=== PATIENT | male | born 1955 | race Hispanic/Latino ===

== ENCOUNTER 2017-08-04 07:11 | Inpatient (IN) | payer MEDICAID, SELFPAY ==
[2017-08-04] MEDS ORDERED: Nitroglycerin 2% Ointment 1 INCH/1 GM Packet ONE (08:13)
[2017-08-04 08:28] LABS: #Lymphocytes 0.8 thou/uL (1.20-3.40); #Monocytes 0.7 thou/uL (0.11-0.59); #Neutrophils 9.8 thou/uL (1.40-6.50); %Basophils 0.2 % (0.0-1.0); %Eosinophils 0.2 % (0.0-10.0); %Lymphocytes 6.8 % (21.0-51.0); %Monocytes 5.9 % (0.0-10.0); %Neutrophils 86.9 % (42.0-75.0); Hemoglobin 10.5 g/dL (14.0-18.0); Mean Corpuscular HGB CONC 33.2 g/dL (32.0-36.0); Mean Corpuscular Hemoglobin 32.2 pg (27.0-31.0); Mean Platelet Volume 8.1 fL (7.4-10.4); Platelet Count 218 thou/uL (130-400); RBC Distribution Width 12.4 % (11.5-14.5); Red Blood Cell (RBC) Count 3.26 mill/uL (4.70-6.10); White Blood Cell (WBC) Count 11.3 thou/uL (4.8-10.8)
[2017-08-04 08:40] LABS: ALT (SGPT) 50 U/L (8-55); AST (SGOT) 62 U/L (5-34); Albumin 3.4 g/dL (3.4-4.8); Alkaline Phosphatase 204 U/L (40-150); Anion Gap 18 mmol/L (10-20); Bilirubin, Total 1.1 mg/dL (0.2-1.2); CK (CPK) 121 U/L (30-200); Calc. Creatinine Clearance 0 mL/min (70-130); Carbon Dioxide 17 mmol/L (23-31); Chloride 107 mmol/L (98-107); Estimated GFR-MDRD 8; Globulin 3.7 g/dL (2.4-3.5); Glucose 283 mg/dL (80-115); Lipase 62 U/L (8-78); Potassium 5.9 mmol/L (3.5-5.1); Protein, Total 7.1 g/dL (5.8-8.1); Sodium 136 mmol/L (136-145)
[2017-08-04 08:45] LABS: CKMB 3.7 ng/mL (0-6.6); Troponin I 0.211 ng/mL (< 0.028)
[2017-08-04] MEDS ORDERED: Calcium Chloride 1 GM/10 ML Abboject SYRINGE ONE ×2 (08:50→08:52)
[2017-08-04] MEDS ORDERED: Furosemide 100 MG/10 ML VIAL ONE (08:50)
[2017-08-04] MEDS ORDERED: Sodium Bicarb 50 MEQ/50 ML Abboject 8.4% SYRINGE ONE (08:50)
[2017-08-04] MEDS ORDERED: Insulin Regular 300 UNITS/3 ML VIAL ONE (08:50)
[2017-08-04 08:51] LABS: BUN (Urea Nitrogen) 114 mg/dL (8.4-25.7)
[2017-08-04] MEDS ORDERED: Ondansetron ODT 4 MG TAB ONE (09:49)
--- NOTE | 2017-08-04 10:31 | PDOC.FPRHP ---
- History of Present Illness Chief Complaint: Shortness of breath History of Present Illness: Mr. Christensen presents as a transfer of care from [facility] for chief complaint of shortness of breath for the last few days. He reports that he has been getting progressively more short of breath for the last few days but it got unbearable at about 0500 this morning. He endorses associated chest tightness when he coughs but not at rest. The discomfort does not radiate and he denies any diaphoresis. He does endorses some nausea associated with trying to cough up phlegm. His cough is productive of clear sputum. He denies any hemoptysis, fever , chills, sick contacts. He arrived here from [place] 8 days ago. He had an AV fistula vs. shunt placed 2 months ago in [place] in anticipation of possible need for dialysis. He is very fearful of dialysis as he had a brother pass away immediately after starting dialysis. He reports that the nitro paste helped decrease his need to cough. ED Course: ASA 81mg x4, nitro paste applied, 100 mg IV lasix, sodium bicarb, calcium chloride, zofran, kayexelate given - Allergies/Adverse Reactions Allergies Allergy/AdvReac Type Severity Reaction Status Date / Time No Known Allergies Allergy Unverified 08/04/17 10:32 - Home Medications Medication Instructions Recorded Confirmed Type Bumetanide [Bumex] 1 mg PO DAILY 08/04/17 08/04/17 History Folic Acid 800 mcg DAILY 08/04/17 08/04/17 History Iron,Carb/Vit C/Vit B12/Folic 1 tab DAILY 08/04/17 08/04/17 History [Iron 100 Plus] Lactulose 10 GM/15ML Oral Karlene 15 gm PO DAILY 08/04/17 08/04/17 History [Lactulose] Levothyroxine Sodium 100 mcg PO QAM 08/04/17 08/04/17 History Multivitamin [Multivitamins] 1 tab DAILY 08/04/17 08/04/17 History NPH, Human Insulin Isophane 20 unit SC QAM 08/04/17 08/04/17 History [Humulin N] Comments: Non-formulary: Telmesartan 40mg qDay, Paracetamol 1g qDay, Comprimidos 1mg qDay , Cisaprida 5mg qDay - History PMHx: Insulin-dependent DM, HTN, hypothyroidism, CKD PSHx: Shunt vs. fistula placement (2018) FHx: Children with DM, does not know parents medical history Social: Used to socially drink (2-3x/mo) quit 1 year ago, denies tobacco use, drug use, tattoos. 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 - Review of Systems General: reports: weight/appetite/sleep changes, fatigue. denies: fever/chills , night sweats Eyes: denies: eye pain, vision changes ENT: denies: nasal congestion, rhinorrhea Respiratory: reports: cough, congestion, shortness of breath, exercise intolerance Cardiovascular: reports: paroxysmal nocturnal dyspnea, orthopnea. denies: chest pain, palpitation Gastrointestinal: reports: nausea. denies: vomiting, diarrhea, constipation, abdominal pain, GI bleeding Genitourinary: denies: incontinence, dysuria, polyuria, discharge Skin: denies: rashes, lesions, itching Musculoskeletal: reports: arthritis/arthralgias. denies: pain, tenderness Neurological: reports: weakness. denies: numbness, syncope, seizure Psychological: denies: anxiety, depression - Vital signs BP: 156/89 HR: 85 RR: 22 Tmax: 98.5 Pox: 94% on RA Wt: 73kg - Physical Exam Constitutional: NAD, awake, alert and oriented HEENT: normocephalic and atraumatic, PERRLA, EOMI, conjunctiva clear (slight icterus), grossly normal vision, TM's clear and intact, grossly normal hearing, normal nasal mucosa, MMM, oropharynx clear Neck: supple, trachea midline Chest: no-tender to palpation, no lesions Heart: RRR, normal S1/S2, no murmurs/rubs/gallops, pulses present, no edema Lungs: no respiratory distress, good air movement, other (faint crackles at BL bases) Abdomen: soft, non-tender, bowel sounds present Musculoskeletal: normal structure, normal tone -Musculoskeletal: palpable thrill located just proximal to R elbow Neurological: no focal deficit, normal sensation, DTRs 2+ Skin: no rash/lesions, good turgor, capillary refill <2 seconds Heme/Lymphatic: no purpura, no petechia Psychiatric: normal mood and affect, good judgment and insight, intact recent and remote memory FMR H&P: Results - Labs Result Diagrams: 08/04/17 08:14 08/04/17 14:01 Lab results: WBC 11.3 thou/uL (4.8-10.8) H 08/04/17 08:14 Hgb 10.5 g/dL (14.0-18.0) L 08/04/17 08:14 Hct 31.6 % (42.0-52.0) L 08/04/17 08:14 MCV 97.0 fl (80.0-94.0) H 08/04/17 08:14 Plt Count 218 thou/uL (130-400) 08/04/17 08:14 Neutrophils % 86.9 % (42.0-75.0) H 08/04/17 08:14 Sodium 136 mmol/L (136-145) 08/04/17 08:14 Potassium 5.9 mmol/L (3.5-5.1) H 08/04/17 08:14 Chloride 107 mmol/L (98-107) 08/04/17 08:14 Carbon Dioxide 17 mmol/L (23-31) L 08/04/17 08:14 BUN 114 mg/dL (8.4-25.7) H 08/04/17 08:14 Creatinine 6.70 mg/dL (0.6-1.3) H 08/04/17 08:14 Glucose 283 mg/dL (80-115) H 08/04/17 08:14 Calcium 9.0 mg/dL (7.8-10.44) 08/04/17 08:14 Total Bilirubin 1.1 mg/dL (0.2-1.2) 08/04/17 08:14 AST 62 U/L (5-34) H 08/04/17 08:14 ALT 50 U/L (8-55) 08/04/17 08:14 Alkaline Phosphatase 204 U/L (40-150) H 08/04/17 08:14 Creatine Kinase 121 U/L (30-200) 08/04/17 08:14 CK-MB (CK-2) 3.7 ng/mL (0-6.6) 08/04/17 08:14 B-Natriuretic Peptide 3649.4 pg/mL (0-100) H 08/04/17 08:14 Serum Total Protein 7.1 g/dL (5.8-8.1) 08/04/17 08:14 Albumin 3.4 g/dL (3.4-4.8) 08/04/17 08:14 Lipase 62 U/L (8-78) 08/04/17 08:14 - EKG Interpretation EKG: NSR, rate 86 bpm, L axis deviation, no ST elevation or depression - Radiology Interpretation Chest x-ray Status: image reviewed by me (Enlarged cardiac silhouette, pulmonary vessels prominent) FMR H&P: A/P - Problem List (1) Chronic kidney disease (CKD) Current Visit: Yes Status: Acute Code(s): N18.9 - CHRONIC KIDNEY DISEASE, UNSPECIFIED (2) Renal failure (ARF), acute on chronic Current Visit: Yes Status: Acute Code(s): N17.9 - ACUTE KIDNEY FAILURE, UNSPECIFIED; N18.9 - CHRONIC KIDNEY DISEASE, UNSPECIFIED (3) Elevated brain natriuretic peptide (BNP) level Current Visit: Yes Status: Acute Code(s): R79.89 - OTHER SPECIFIED ABNORMAL FINDINGS OF BLOOD CHEMISTRY (4) Insulin dependent diabetes mellitus Current Visit: Yes Status: Acute Code(s): E11.9 - TYPE 2 DIABETES MELLITUS WITHOUT COMPLICATIONS; Z79.4 - NURSING HOME (CURRENT) USE OF INSULIN (5) Hypertension Current Visit: Yes Status: Acute Code(s): I10 - ESSENTIAL (PRIMARY) HYPERTENSION (6) Hypothyroidism Current Visit: Yes Status: Acute Code(s): E03.9 - HYPOTHYROIDISM, UNSPECIFIED (7) Fluid overload Current Visit: Yes Status: Acute Code(s): E87.70 - FLUID OVERLOAD, UNSPECIFIED (8) Hyperkalemia Current Visit: Yes Status: Acute Code(s): E87.5 - HYPERKALEMIA (9) Elevated troponin Current Visit: Yes Status: Acute Code(s): R74.8 - ABNORMAL LEVELS OF OTHER SERUM ENZYMES - Plan 62 yo M with known PMHx of CKD, HTN, IDDM here with fluid overload secondary to likely acute on chronic CKD in addition to possible CHF 1. Fluid overload - CXR shows pulmonary vessel prominence along with elevated BNP and symptoms - Respiratory status stable at this time - Appreciate Dr. Galaviz's assistance with evaluation for possible dialysis - Lasix given in ED - Strict I/Os - Echo ordered 2. Elevated troponin - Suspect demand ischemia - No ST changes on EKG - ASA 81mgx4 and nitro paste given in ED - Asyptomatic at this time - Will trend troponins and repeat EKG if chest pain arises - Monitor on telemetry - Will check FLP, a1c, Mg, Phos - Depending on ASCVD risk, may start daily ASA/statin 3. Hyperkalemia - Lasix and kayexelate given in ED - Dr. Galaviz notified - Will recheck in 4-[address] Galaviz's recommendations - Possible dialysis - No peaked T waves on EKG 4. Acute renal failure on CKD - Apprecaite Dr. Galaviz's recommendations - Fistula vs. graft in place in RUE 5. Insulin dependent DM - Will check A1c - ACHS accuchecks - Resume home insulin + moderate SSI 6. HTN - Will resume home meds as able (many not on forumlary here) 7. Hypothyroidism - TSH WNL - Continue home levothyroxine PPX: Heparin 5000u TID Attending Addendum - Attending Addendum Date/Time: 08/04/17 1130 I personally evaluated the patient and discussed the management with Dr. Beatty. I agree with the History, Examination, Assessment and Plan documented above with any addition or exceptions noted below. Patient with history of DM, HTN, and CKD4 presenting with increasing shortness of breath, KNOX, and orthopnea associated with worsening renal function. Patient has been followed by nephrology in [place] with anticipation of HD. However, he recently arrived in the [place] about 1 week ago. Over the last few days has had increasing symptoms that acutely worsened early this morning. Patient is not currently in any respiratory distress and sats are normal on room air after receiving NItro and Lasix in the ED. Labs are consistent with end stage renal failure and volume overload with likely demand ischemia. CXR is also consistent with that diagnosis. Patient is mildly hyperkalemic but no evidence of cardiac toxicity. Patient will be admitted to telemetry, trend troponins, supplemental O2 as needed, and continue diuresis as able with strict I/O. Dr. Galaviz has been consulted and I suspect patient may need to begin HD therapy due to his volume overload and now inability to regulate electrolytes. Most of his HTN meds are not available in the [place], and so we will begin him on standard therapy and titrate as needed. Anticipate 3+ days of hospitalization unless he obtains some functional recovery of his kidneys.
[2017-08-04 10:44] VITALS: BMI 29.0
[2017-08-04] MEDS ORDERED: Dextrose 50% Abboject 50 ML SYRINGE SLOW IVP PRN (10:53)
[2017-08-04] MEDS ORDERED: Dextrose 5% in Water 1,000 ML IV PRN (10:53)
[2017-08-04] MEDS ORDERED: HumaLOG 300 UNITS/3 ML VIAL SC PRN (10:53)
[2017-08-04 11:25] LABS: Magnesium 2.5 mg/dL (1.6-2.6)
[2017-08-04 11:31] LABS: Troponin I 0.191 ng/mL (< 0.028)
[2017-08-04 13:14] LABS: Troponin I 0.237 ng/mL (< 0.028)
[2017-08-04 13:25] LABS: Hep B Surf Ag Non-Reactive S/CO (NonReactive)
[2017-08-04 13:26] LABS: HBSAg Index 0.21 S/CO (0-0.99)
[2017-08-04 14:45] LABS: Iron 18 ug/dL (65-175); Iron Binding Capacity, Total 183 mcg/dL (261-462)
[2017-08-04 14:47] LABS: Anion Gap 17 mmol/L (10-20); BUN (Urea Nitrogen) 76 mg/dL (8.4-25.7); Calc. Creatinine Clearance 19 mL/min (70-130); Calcium 9.4 mg/dL (7.8-10.44); Carbon Dioxide 22 mmol/L (23-31); Chloride 103 mmol/L (98-107); Estimated GFR-MDRD 14; Glucose 150 mg/dL (80-115); Potassium 4.2 mmol/L (3.5-5.1); Sodium 138 mmol/L (136-145)
[2017-08-04 14:52] LABS: Troponin I 0.256 ng/mL (< 0.028)
[2017-08-04 15:17] LABS: Folate (Folic Acid) 16.4 ng/mL (7.0-31.4)
--- NOTE | 2017-08-04 16:08 | CON ---
DATE OF CONSULTATION: 08/04/2017 REASON FOR CONSULTATION: Hyperkalemia. HISTORY OF PRESENT ILLNESS: This is a 62-year-old gentleman with known ESRD, who presented to the [facility] for evaluation and management of dialysis. The patient denies headache, numbness, tingling or weakness. Denies any nausea, vomiting or chest pain. PAST MEDICAL HISTORY: Significant for end-stage renal disease, hypertension, anemia, diabetes mellit us, history of AV fistula, and history of diabetic gastroparesis. SOCIAL ECONOMIC HISTORY: No alcohol or drug use. FAMILY HISTORY: Negative for ESRD. ALLERGIES: Reviewed. HOME MEDICATIONS: List reviewed. REVIEW OF SYSTEMS: Fifteen-point review of systems was performed and negative except for positive no flor above. GENERAL: Weakness- HEAD: Headache- NECK: No swelling or lumps. NOSE: No epistaxis or discharge. EYES: No diplopia or pain. RESPIRATORY: Dyspnea- CARDIOVASCULAR: Chest pain- GASTROINTESTINAL: Nausea- /LVN LPN: Hematuria- MUSCULOSKELETAL: No joint pain. NEUROPSYCHIATIC SYSTEMS: No suicidal ideation. No ideation. SKIN: Denies any rash or ulcer. CONSTITUTIONAL: No fever or chills. PHYSICAL EXAMINATION: GENERAL: Patient is awake and alert. VITAL SIGNS: Afebrile, pulse 60, breathing 16, and blood pressure 187/88. GENERAL APPEARANCE AND MENTAL STATUS: Fair. HEAD/NECK: Normocephalic. Atraumatic. EYES: EOMI. No deformity. EARS: Clear. No ulcers. NOSE: Intact. No lesions. MOUTH: Clear. No discharge. THROAT: Clear. No exudate. LUNGS: Clear. No crackles. CARDIAC: S1, S2. No rub. ABDOMEN: Benign. BS+. GENITALIA/RECTUM: Ayala absent. BACK/EXTREMITIES: Edema 0+ Ulcer- NEUROLOGICAL: Alert and motor intact. SKIN: Rash- Bruise- LABORATORY DATA: Hemoglobin 10.5. ASSESSMENT AND RECOMMENDATIONS: 1. Stage 6 chronic kidney disease. I will plan dialysis. 2. Hyperkalemia. Plan dialysis. 3. Metabolic acidosis. Plan dialysis. 4. Congestive heart failure. Plan dialysis. Overall, prognosis is poor. Assistant Dean consult has been ordered.
[2017-08-04] MEDS: HumaLOG 300 UNITS/3 ML VIAL SC PRN (18:20)
[2017-08-04] MEDS: Heparin 5,000 UNITS/ML VIAL SC SCH ×2 (18:20→21:28)
[2017-08-04] MEDS ORDERED: Insulin Detemir 100 UNITS/ML 10 UNITS in Admixture Fee 1 EACH SC SCH (21:00)
[2017-08-04] MEDS: Insulin Glargine 10 UNITS in Pre-Filled Syringe 1 EACH SC SCH (21:28)
[2017-08-05] MEDS: Levothyroxine Sodium 100 MCG TAB PO SCH (06:21)
--- NOTE | 2017-08-05 07:06 | PDOC.FM ---
- Subjective Subjective: Patient received dialysis yesterday night. He reports he is feeling better other than having a cough with sputum. He denies fever/chills, no bloody sputum , or CP. No acute events overnight. - Objective MAR Reviewed: Yes Vital Signs & Weight: Vital Signs (12 hours) Temp Pulse Resp BP Pulse Ox 08/05/17 05:38 95 08/04/17 20:00 98.6 F 78 18 141/74 H 95 08/04/17 19:45 98.6 F 78 18 95 Weight Weight 74.258 kg Result Diagrams: 08/04/17 08:14 08/05/17 05:36 <Dalia Dorman - Last Filed: 08/05/17 10:26> - Objective Vital Signs & Weight: Vital Signs (12 hours) Temp Pulse Resp BP Pulse Ox 08/05/17 07:55 99.7 F H 80 16 141/69 H 94 L 08/05/17 05:38 95 08/05/17 04:00 99.6 F 79 18 139/72 94 L Weight Weight 70.5 kg I&O: 08/04/17 08/05/17 08/06/17 06:59 06:59 06:59 Intake Total 150 Output Total 500 Balance -350 Result Diagrams: 08/04/17 08:14 08/05/17 05:36 <Juan Garcia - Last Filed: 08/05/17 11:06> Phys Exam - Physical Examination Constitutional: NAD Respiratory: no wheezing, no rales splinting during deep respirations, mild rhonchi Cardiovascular: RRR Gastrointestinal: soft, non-tender Musculoskeletal: no edema Psychiatric: normal affect, A&O x 3 <Dalia Dorman - Last Filed: 08/05/17 10:26> Dx/Plan (1) Chronic kidney disease (CKD) Code(s): N18.9 - CHRONIC KIDNEY DISEASE, UNSPECIFIED Status: Acute (2) Elevated brain natriuretic peptide (BNP) level Code(s): R79.89 - OTHER SPECIFIED ABNORMAL FINDINGS OF BLOOD CHEMISTRY Status : Acute (3) Fluid overload Code(s): E87.70 - FLUID OVERLOAD, UNSPECIFIED Status: Acute (4) Hypertension Code(s): I10 - ESSENTIAL (PRIMARY) HYPERTENSION Status: Acute (5) Hypothyroidism Code(s): E03.9 - HYPOTHYROIDISM, UNSPECIFIED Status: Acute (6) Insulin dependent diabetes mellitus Code(s): E11.9 - TYPE 2 DIABETES MELLITUS WITHOUT COMPLICATIONS; Z79.4 - INTERMEDIATE (CURRENT) USE OF INSULIN Status: Acute (7) Renal failure (ARF), acute on chronic Code(s): N17.9 - ACUTE KIDNEY FAILURE, UNSPECIFIED; N18.9 - CHRONIC KIDNEY DISEASE, UNSPECIFIED Status: Acute - Plan Plan: Acute renal failure on CKD - s/p dialysis yesterday - Fistula vs. graft in place in RUE - Dr. Galaviz following, anticipate the need for dialysis either today or tomorrow. Cough with sputum production - CXR shows possible PNA - WBC mildly elevated, repeat tomorrrow - afebrile. - procalcitonin pending - likely associated with fluid overload. Fluid overload - CXR shows pulmonary vessel prominence along with elevated BNP and symptoms - s/p dialysis yesterday - Strict I/Os - Echo with EF 50-55% and elevated pulmonary artery pressure. Elevated troponin - Suspect demand ischemia, troponins downtrended - No ST changes on EKG - ASA 81mgx4 and nitro paste given in ED - ASCVD risk 20.1%, will start Lipitor 40 Hyperkalemia, resolved - s/p Lasix and kayexelate given in ED and dialysis - continue to monitor Insulin dependent DM - Will check A1c - ACHS accuchecks - Resume home insulin + moderate SSI HTN - well controlled on current meds. - continue to monitor Hypothyroidism - TSH WNL - Continue home levothyroxine PPX: Heparin 5000u TID <Dalia Dorman - Last Filed: 08/05/17 10:26> (1) Chronic kidney disease (CKD) Code(s): N18.9 - CHRONIC KIDNEY DISEASE, UNSPECIFIED Status: Acute (2) Renal failure (ARF), acute on chronic Code(s): N17.9 - ACUTE KIDNEY FAILURE, UNSPECIFIED; N18.9 - CHRONIC KIDNEY DISEASE, UNSPECIFIED Status: Acute (3) Elevated brain natriuretic peptide (BNP) level Code(s): R79.89 - OTHER SPECIFIED ABNORMAL FINDINGS OF BLOOD CHEMISTRY Status : Acute (4) Insulin dependent diabetes mellitus Code(s): E11.9 - TYPE 2 DIABETES MELLITUS WITHOUT COMPLICATIONS; Z79.4 - INTERMEDIATE (CURRENT) USE OF INSULIN Status: Acute (5) Hypertension Code(s): I10 - ESSENTIAL (PRIMARY) HYPERTENSION Status: Acute (6) Hypothyroidism Code(s): E03.9 - HYPOTHYROIDISM, UNSPECIFIED Status: Acute (7) Fluid overload Code(s): E87.70 - FLUID OVERLOAD, UNSPECIFIED Status: Acute (8) Hyperkalemia Code(s): E87.5 - HYPERKALEMIA Status: Acute (9) Elevated troponin Code(s): R74.8 - ABNORMAL LEVELS OF OTHER SERUM ENZYMES Status: Acute <Juan Garcia - Last Filed: 08/05/17 11:06> Attending Addendum - Attending Addendum Date/Time: 08/05/17 1104 I personally evaluated the patient and discussed the management with Dr. Dorman. I agree with the History, Examination, Assessment and Plan documented above with any addition or exceptions noted below. Patient both subjectively and objectively improved this morning after initiating HD yesterday. Appreciate Nephro assistance and await further recs regarding continued HD therapy. Will need CM on board due to challenging social situation and the need for lining parts sewer dialysis therapy. BP improved. Will obtain PPD due to persistent cough and immigrant status. Continue BP med titration as needed. <Juan Garcia - Last Filed: 08/05/17 11:06>
[2017-08-05 07:19] LABS: Chloride 105 mmol/L (98-107); Potassium 4.2 mmol/L (3.5-5.1); Sodium 137 mmol/L (136-145)
[2017-08-05 07:20] LABS: Calcium 8.8 mg/dL (7.8-10.44); Glucose 139 mg/dL (80-115); Triglycerides 109 mg/dL (Less than 150)
[2017-08-05 07:22] LABS: Anion Gap 14 mmol/L (10-20); Carbon Dioxide 22 mmol/L (23-31)
[2017-08-05 07:24] LABS: BUN (Urea Nitrogen) 97 mg/dL (8.4-25.7); Calc. Creatinine Clearance 14 mL/min (70-130); Estimated GFR-MDRD 10
[2017-08-05 07:26] LABS: Cardiac Risk 3.9 (Less than 4.5); Cholesterol 156 mg/dl (< 200 Desired); HDL Cholesterol 40 mg/dL (>60 Neg Risk); LDL Cholesterol, Calculated 94 mg/dL
[2017-08-05] MEDS ORDERED: Insulin Detemir 100 UNITS/ML 10 UNITS in Admixture Fee 1 EACH SC SCH (09:00)
[2017-08-05] MEDS: Multivit, Therapeutic 1 TAB PO SCH (09:05)
[2017-08-05] MEDS: Insulin Glargine 10 UNITS in Pre-Filled Syringe 1 EACH SC SCH ×3 (09:05→23:08)
[2017-08-05] MEDS: Heparin 5,000 UNITS/ML VIAL SC SCH ×3 (09:06→22:04)
[2017-08-05] MEDS: Folic Acid 1 MG TAB PO SCH (09:15)
[2017-08-05] MEDS ORDERED: Tuberculin PPD 0.1 ML VIAL I-DERMAL SCH (11:00)
--- NOTE | 2017-08-05 13:11 | PRG ---
DATE OF SERVICE: 08/05/2017 SUBJECTIVE: A 62-year-old gentleman being seen for end-stage renal disease. The patient denies any nausea, vomiting or chest pain. PHYSICAL EXAMINATION: GENERAL: Patient is awake, alert. VITAL SIGNS: Afebrile, pulse 75, breathing 16, blood pressure 141/69. GENERAL APPEARANCE AND MENTAL STATUS: Fair. HEAD/NECK: Normocephalic. Atraumatic. EYES: EOMI. No deformity. EARS: Clear. No ulcers. NOSE: Intact. No lesions. MOUTH: Clear. No discharge. THROAT: Clear. No exudate. LUNGS: Clear. No crackles. CARDIAC: S1, S2. No rub. ABDOMEN: Benign. BS+. GENITALIA/RECTUM: Ayala absent. BACK/EXTREMITIES: Edema 0+ Ulcer- NEUROLOGICAL: Alert and motor intact. SKIN: Rash- Bruise- LYMPHATICS: Edema- Ulcer- LABORATORY DATA: Potassium is 4.6. ASSESSMENT AND RECOMMENDATIONS: 1. Stage 6 chronic kidney disease, plan hemodialysis. 2. Hypertension, stable. 3. Anemia, stable. 4. Medication based on glomerular filtration rate are appropriate. MTDD
[2017-08-05] MEDS: Atorvastatin Calcium 40 MG TAB PO SCH (22:04)
[2017-08-05] MEDS: Metoprolol Tartrate 25 MG TAB PO SCH (22:04)
[2017-08-06 04:57] LABS: Anion Gap 16 mmol/L (10-20); BUN (Urea Nitrogen) 116 mg/dL (8.4-25.7); Calc. Creatinine Clearance 12 mL/min (70-130); Calcium 8.7 mg/dL (7.8-10.44); Carbon Dioxide 21 mmol/L (23-31); Chloride 106 mmol/L (98-107); Estimated GFR-MDRD 9; Glucose 75 mg/dL (80-115); Potassium 4.3 mmol/L (3.5-5.1); Sodium 139 mmol/L (136-145)
--- NOTE | 2017-08-06 05:30 | PDOC.FM ---
- Subjective Subjective: Red Christensen seen at bedside this morning with his daughter and . He is doing well this morning. He does not have an appetite and every time he has food in front of him, he becomes nauseated. He has had no issues overnight and no complaints this morning. Denies fever, chills, chest pain, dyspnea. His oxygen saturation this morning is 95% on RA. - Objective MAR Reviewed: Yes Vital Signs & Weight: Vital Signs (12 hours) Temp Pulse Resp BP Pulse Ox 08/05/17 20:00 99.1 F 80 18 155/77 H 95 Weight Weight 70.5 kg I&O: 08/04/17 08/05/17 08/06/17 06:59 06:59 06:59 Intake Total 150 Output Total 500 Balance -350 Result Diagrams: 08/04/17 08:14 08/06/17 04:25 Phys Exam - Physical Examination Constitutional: NAD HEENT: moist MMs, sclera anicteric Neck: no JVD, supple, full ROM Respiratory: no wheezing, no rales, no rhonchi, clear to auscultation bilateral Cardiovascular: RRR, no significant murmur Gastrointestinal: soft, non-tender, no distention Musculoskeletal: no edema, pulses present Neurological: non-focal, normal sensation, moves all 4 limbs Psychiatric: normal affect, A&O x 3 Skin: no rash, normal turgor Dx/Plan (1) Renal failure (ARF), acute on chronic Code(s): N17.9 - ACUTE KIDNEY FAILURE, UNSPECIFIED; N18.9 - CHRONIC KIDNEY DISEASE, UNSPECIFIED Status: Acute (2) Chronic kidney disease (CKD) Code(s): N18.9 - CHRONIC KIDNEY DISEASE, UNSPECIFIED Status: Acute (3) Fluid overload Code(s): E87.70 - FLUID OVERLOAD, UNSPECIFIED Status: Acute (4) Hyperkalemia Code(s): E87.5 - HYPERKALEMIA Status: Acute (5) Hypertension Code(s): I10 - ESSENTIAL (PRIMARY) HYPERTENSION Status: Acute (6) Hypothyroidism Code(s): E03.9 - HYPOTHYROIDISM, UNSPECIFIED Status: Acute (7) Insulin dependent diabetes mellitus Code(s): E11.9 - TYPE 2 DIABETES MELLITUS WITHOUT COMPLICATIONS; 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 graft in place in RUE - Dr. Galaviz following, anticipate the need for dialysis either today or tomorrow. (2) Cough with sputum production - CXR shows possible PNA - WBC mildly elevated, repeat tomorrrow - afebrile. - procalcitonin is 1.43, concerning for bacterial infection vs retention of metabolites from ckd. - will likely start abx this morning (3) Fluid overload - CXR shows pulmonary vessel prominence along with elevated BNP and symptoms - s/p dialysis yesterday - Strict I/Os - Echo with EF 50-55% and elevated pulmonary artery pressure. (4) Elevated troponin - Suspect demand ischemia, troponins downtrended - No ST changes on EKG - ASA 81mgx4 and nitro paste given in ED - ASCVD risk 20.1%, started lipitor 40 mg daily (5) Hyperkalemia, resolved - s/p Lasix and kayexelate given in ED and dialysis - continue to monitor (6) Insulin dependent DM - hgA1c is 6.0 - ACHS accuchecks - Resume home insulin + moderate SSI (7) HTN - well controlled on current meds. - continue to monitor (8) Hypothyroidism - TSH WNL - Continue home levothyroxine
[2017-08-06] MEDS: Levothyroxine Sodium 100 MCG TAB PO SCH (05:43)
[2017-08-06] MEDS ORDERED: Ondansetron ODT 4 MG TAB PO PRN (06:28)
[2017-08-06 08:32] LABS: #Lymphocytes 1.1 thou/uL (1.20-3.40); #Monocytes 0.8 thou/uL (0.11-0.59); #Neutrophils 6.6 thou/uL (1.40-6.50); %Basophils 0.2 % (0.0-1.0); %Eosinophils 0.2 % (0.0-10.0); %Lymphocytes 12.5 % (21.0-51.0); %Monocytes 9.3 % (0.0-10.0); %Neutrophils 77.9 % (42.0-75.0); Hemoglobin 9.7 g/dL (14.0-18.0); Mean Corpuscular Hemoglobin 32.4 pg (27.0-31.0); Platelet Count 222 thou/uL (130-400); RBC Distribution Width 12.4 % (11.5-14.5); White Blood Cell (WBC) Count 8.5 thou/uL (4.8-10.8)
--- NOTE | 2017-08-06 10:58 | PRG ---
Patient Name: LAUREN GOLDSMITH Date of service: 08/06/2017 Subjective: Patient was seen and examined at bedside and overnight events noted. Patient denies any shortness of breath or chest pain or palpitation. No history of nausea or vomiting or diarrhea or fever or chills or cramps. Objective: General: This is a well-built male in no apparent distress. Vital signs: Temperature 98.6, pulse 60, respirations 18, blood pressure 132/70. HEENT: Atraumatic, normocephalic. Oral mucosa is moist. Neck: Supple. Cardiovascular: S1 S2 heard. Rate and rhythm regular. Respiratory: Clear to auscultation. Gastrointestinal: Abdomen is soft. Musculoskeletal: No tenderness. No edema. Dermatologic: No skin rash. Neurologic: Alert and awake and oriented X3. No focal neurologic deficits. Moving all the extremit ies. Psychiatric: Mood and affect normal. LABORATORY DATA: Potassium 4.3, BUN is 160, and creatinine is 6.5. ASSESSMENT AND PLAN: 1. End-stage renal disease, started on hemodialysis. Plan is to continue on dialysis as tolerated. The patient was seen during dialysis, tolerating well. 2. Edema, controlled. 3. Hypertension, stable. 4. Anemia. Monitor hemoglobin. Plan is to continue on dialysis as tolerated. Follow with case management for outpatient placement.
--- NOTE | 2017-08-06 11:48 | ADD-PRG ---
DATE OF SERVICE: 08/06/2017 This is an addendum to the note of Dr. Mitul Brito. Mr. Christensen is currently in dialysis. He is being followed by Dr. Galaviz and will continue to receive d ialysis. He was admitted initially slightly fluid overloaded and hyperkalemic, but these have been r esolved with his hemodialysis.
[2017-08-06] MEDS: Heparin 5,000 UNITS/ML VIAL SC SCH ×3 (12:16→23:12)
[2017-08-06] MEDS: Folic Acid 1 MG TAB PO SCH (12:28)
[2017-08-06] MEDS: Multivit, Therapeutic 1 TAB PO SCH (12:28)
[2017-08-06] MEDS: Metoprolol Tartrate 25 MG TAB PO SCH ×2 (12:28→23:12)
[2017-08-06] MEDS: Insulin Glargine 10 UNITS in Pre-Filled Syringe 1 EACH SC SCH ×2 (12:29→23:12)
[2017-08-06] MEDS: Atorvastatin Calcium 40 MG TAB PO SCH (23:12)
[2017-08-07 05:17] LABS: Anion Gap 17 mmol/L (10-20); BUN (Urea Nitrogen) 78 mg/dL (8.4-25.7); Calc. Creatinine Clearance 14 mL/min (70-130); Calcium 8.4 mg/dL (7.8-10.44); Carbon Dioxide 19 mmol/L (23-31); Chloride 106 mmol/L (98-107); Estimated GFR-MDRD 10; Glucose 76 mg/dL (80-115); Potassium 4.3 mmol/L (3.5-5.1); Sodium 138 mmol/L (136-145)
[2017-08-07] MEDS: Levothyroxine Sodium 100 MCG TAB PO SCH (06:33)
[2017-08-07 06:50] LABS: #Lymphocytes 1.2 thou/uL (1.20-3.40); #Monocytes 0.9 thou/uL (0.11-0.59); #Neutrophils 6.5 thou/uL (1.40-6.50); %Basophils 0.1 % (0.0-1.0); %Eosinophils 0.3 % (0.0-10.0); %Lymphocytes 13.7 % (21.0-51.0); %Neutrophils 75.8 % (42.0-75.0); Hemoglobin 10.2 g/dL (14.0-18.0); Mean Corpuscular HGB CONC 32.9 g/dL (32.0-36.0); Mean Corpuscular Hemoglobin 32.7 pg (27.0-31.0); Mean Corpuscular Volume 99.2 fl (80.0-94.0); Mean Platelet Volume 8.9 fL (7.4-10.4); Platelet Count 208 thou/uL (130-400); RBC Distribution Width 12.5 % (11.5-14.5); Red Blood Cell (RBC) Count 3.13 mill/uL (4.70-6.10); White Blood Cell (WBC) Count 8.6 thou/uL (4.8-10.8)
--- NOTE | 2017-08-07 07:42 | PDOC.FM ---
- Subjective Subjective: Red Christensen seen at bedside this morning. He had dialysis yesterday and tolerated it well. He did have a temperature elevated last night up to 100.5. He was asymptomatic and night team was not notified. They were notified of patient complaining of diarrhea overnight. He does take lactulose which is a scheduled home med. - Objective MAR Reviewed: Yes Vital Signs & Weight: Vital Signs (12 hours) Temp Pulse Resp BP Pulse Ox 08/07/17 04:00 98.9 F 64 20 142/74 H 94 L 08/06/17 20:00 100.5 F H 66 18 139/66 93 L Weight Weight 70.5 kg I&O: 08/06/17 08/07/17 08/08/17 06:59 06:59 06:59 Intake Total 200 676 Output Total 1300 Balance 200 -624 Result Diagrams: 08/07/17 04:46 08/07/17 04:16 Phys Exam - Physical Examination Constitutional: NAD HEENT: moist MMs, sclera anicteric Neck: no JVD, supple, full ROM Respiratory: no wheezing, no rales, no rhonchi, clear to auscultation bilateral Cardiovascular: RRR, no significant murmur Gastrointestinal: soft, non-tender, no distention Musculoskeletal: no edema, pulses present Neurological: non-focal, normal sensation, moves all 4 limbs Psychiatric: normal affect, A&O x 3 Skin: no rash, normal turgor Dx/Plan (1) Renal failure (ARF), acute on chronic Code(s): N17.9 - ACUTE KIDNEY FAILURE, UNSPECIFIED; N18.9 - CHRONIC KIDNEY DISEASE, UNSPECIFIED Status: Acute (2) Chronic kidney disease (CKD) Code(s): N18.9 - CHRONIC KIDNEY DISEASE, UNSPECIFIED Status: Acute (3) Fluid overload Code(s): E87.70 - FLUID OVERLOAD, UNSPECIFIED Status: Acute (4) Hyperkalemia Code(s): E87.5 - HYPERKALEMIA Status: Acute (5) Hypertension Code(s): I10 - ESSENTIAL (PRIMARY) HYPERTENSION Status: Acute (6) Hypothyroidism Code(s): E03.9 - HYPOTHYROIDISM, UNSPECIFIED Status: Acute (7) Insulin dependent diabetes mellitus Code(s): E11.9 - TYPE 2 DIABETES MELLITUS WITHOUT COMPLICATIONS; Z79.4 - COUPLES THERAPIST (CURRENT) USE OF INSULIN Status: Acute - Plan Plan: (1) Acute renal failure on CKD - s/p dialysis on 08/04 and 08/06 - Fistula vs. graft in place in RUE - Dr. Galaviz following, appreciate recs (2) Cough with sputum production - CXR shows possible PNA - WBC is now normal - afebrile. - procalcitonin is 1.43, concerning for bacterial infection vs retention of metabolites from ckd. - He did have a temp of 100.5 last night, will consider treatment - checking UA, CXR, C diff Ag and Toxin and Fecal leukocytes (3) Fluid overload - CXR shows pulmonary vessel prominence along with elevated BNP and symptoms - s/p dialysis yesterday - Strict I/Os - Echo with EF 50-55% and elevated pulmonary artery pressure. (4) Elevated troponin - Suspect demand ischemia, troponins downtrended - No ST changes on EKG - ASA 81mgx4 and nitro paste given in ED - ASCVD risk 20.1%, started lipitor 40 mg daily (5) Hyperkalemia, resolved - s/p Lasix and kayexelate given in ED and dialysis - continue to monitor (6) Insulin dependent DM - hgA1c is 6.0 - ACHS accuchecks - Resume home insulin + moderate SSI (7) HTN - well controlled on current meds. - continue to monitor (8) Hypothyroidism - TSH WNL - Continue home levothyroxine
[2017-08-07] MEDS: Metoprolol Tartrate 25 MG TAB PO SCH ×2 (09:47→21:02)
[2017-08-07] MEDS: Folic Acid 1 MG TAB PO SCH (09:47)
[2017-08-07] MEDS: Multivit, Therapeutic 1 TAB PO SCH (09:47)
[2017-08-07] MEDS: Heparin 5,000 UNITS/ML VIAL SC SCH ×3 (09:47→21:01)
[2017-08-07] MEDS: Insulin Glargine 10 UNITS in Pre-Filled Syringe 1 EACH SC SCH ×2 (09:48→21:01)
--- NOTE | 2017-08-07 10:18 | RAD ---
CHEST TWO VIEWS: History: Fever. Pneumonia. Comparison: 08-04-17 FINDINGS: Cardiac silhouette is upper limits of normal in size. Pulmonary vasculature is slightly engorged. Pat rebeka bibasilar infiltrates and small amount of right pleural fluid are unchanged. No lobar consolidati on is apparent. IMPRESSION: Radiographic findings of CHF are stable. No lobar pneumonia is evident. POS: TPC
--- NOTE | 2017-08-07 12:57 | PRG ---
DATE OF SERVICE: 08/07/2017 NEPHROLOGY PROGRESS NOTE SUBJECTIVE: Patient was seen and examined at bedside and overnight events noted. Patient denies any shortness of breath or chest pain or palpitation. No history of nausea or vomiting or diarrhea or f ever or chills or cramps. OBJECTIVE: GENERAL: This is a well-built male in no apparent distress. VITAL SIGNS: Temperature 98.3, pulse 74, respiratory rate 18, blood pressure 152/73. HEENT: Atraumatic, normocephalic. Oral mucosa is moist. NECK: Supple. CARDIOVASCULAR: S1, S2 heard. Rate and rhythm regular. RESPIRATORY: Clear to auscultation. GASTROINTESTINAL: Abdomen is soft. MUSCULOSKELETAL: No tenderness. No edema. DERMATOLOGIC: No skin rash. NEUROLOGIC: Alert and awake and oriented x3. No focal neurologic deficits. Moving all the extremiti es. PSYCHIATRIC: Mood and affect normal. LABORATORY DATA: Potassium is 4.3, BUN 78, creatinine is 5.5. ASSESSMENT AND PLAN: 1. End-stage renal disease. We will continue on dialysis as tolerated. No dialysis today. We will plan for dialysis tomorrow. We will have case management consult for outpatient placement. Plan di scussed with the family. 2. Edema. 3. Hypertension. 4. Anemia. We will monitor. Hemoglobin is better. Tolerating dialysis well so far. Need outpatie nt placement for dialysis.
--- NOTE | 2017-08-07 13:26 | ADD-PRG ---
DATE OF SERVICE: 08/07/2017 ADDENDUM Please add this has an addendum to the note of Dr. Mitul Brito. Mr. Christensen has returned from dialys is this morning and in no distress. The family relates after services are finished here, they are mo ving him to [place] to continue dialysis there. We will continue to follow with Dr. Galaviz and appreci ate his input.
[2017-08-07] MEDS: HumaLOG 300 UNITS/3 ML VIAL SC PRN (17:30)
[2017-08-07] MEDS: Atorvastatin Calcium 40 MG TAB PO SCH (21:02)
[2017-08-08 05:00] LABS: #Lymphocytes 1.1 thou/uL (1.20-3.40); #Monocytes 0.8 thou/uL (0.11-0.59); #Neutrophils 8.2 thou/uL (1.40-6.50); %Basophils 0.1 % (0.0-1.0); %Eosinophils 0.4 % (0.0-10.0); %Lymphocytes 11.2 % (21.0-51.0); %Monocytes 8.2 % (0.0-10.0); %Neutrophils 80.1 % (42.0-75.0); Hemoglobin 10.1 g/dL (14.0-18.0); Mean Corpuscular HGB CONC 32.8 g/dL (32.0-36.0); Mean Corpuscular Hemoglobin 31.9 pg (27.0-31.0); Mean Corpuscular Volume 97.4 fl (80.0-94.0); Mean Platelet Volume 8.1 fL (7.4-10.4); Platelet Count 229 thou/uL (130-400); RBC Distribution Width 12.6 % (11.5-14.5); Red Blood Cell (RBC) Count 3.15 mill/uL (4.70-6.10); White Blood Cell (WBC) Count 10.2 thou/uL (4.8-10.8)
[2017-08-08 05:12] LABS: Anion Gap 17 mmol/L (10-20); BUN (Urea Nitrogen) 94 mg/dL (8.4-25.7); Calc. Creatinine Clearance 11 mL/min (70-130); Calcium 8.4 mg/dL (7.8-10.44); Carbon Dioxide 21 mmol/L (23-31); Chloride 104 mmol/L (98-107); Estimated GFR-MDRD 8; Glucose 106 mg/dL (80-115); Potassium 4.4 mmol/L (3.5-5.1); Sodium 138 mmol/L (136-145)
[2017-08-08] MEDS: Levothyroxine Sodium 100 MCG TAB PO SCH (05:58)
[2017-08-08] MEDS: READ PPD TEST SITE PO SCH ×2 (06:00→11:47)
--- NOTE | 2017-08-08 08:18 | PDOC.FM ---
- Subjective Subjective: Red Christensen seen at bedside this morning. He did well overnight, there were no acute events. He is scheduled for dialysis this morning. He and family are aware that case management is on case, working to find [facility] dialysis bed in [place]. Denies fever, chest pain, dyspnea, n/v. - Objective MAR Reviewed: Yes Vital Signs & Weight: Vital Signs (12 hours) Temp Pulse Resp BP Pulse Ox 08/08/17 04:00 99.0 F 62 18 133/64 96 08/08/17 00:00 98.8 F 60 16 124/60 94 L Weight Weight 70.5 kg I&O: 08/07/17 08/08/17 08/09/17 06:59 06:59 06:59 Intake Total 676 840 Output Total 1300 0 Balance -624 840 Result Diagrams: 08/08/17 04:35 08/08/17 04:35 Radiology Reviewed by me: Yes (CXR: stable chf findings, no lobar pneumonia) Phys Exam - Physical Examination Constitutional: NAD HEENT: moist MMs, sclera anicteric Neck: no JVD, supple, full ROM Respiratory: no wheezing, no rales, no rhonchi, clear to auscultation bilateral Cardiovascular: RRR, no significant murmur Gastrointestinal: soft, non-tender, no distention Musculoskeletal: no edema, pulses present Neurological: non-focal, normal sensation, moves all 4 limbs Psychiatric: normal affect, A&O x 3 Skin: no rash, normal turgor Dx/Plan (1) Renal failure (ARF), acute on chronic Code(s): N17.9 - ACUTE KIDNEY FAILURE, UNSPECIFIED; N18.9 - CHRONIC KIDNEY DISEASE, UNSPECIFIED Status: Acute (2) Chronic kidney disease (CKD) Code(s): N18.9 - CHRONIC KIDNEY DISEASE, UNSPECIFIED Status: Acute (3) Fluid overload Code(s): E87.70 - FLUID OVERLOAD, UNSPECIFIED Status: Acute (4) Hyperkalemia Code(s): E87.5 - HYPERKALEMIA Status: Acute (5) Hypertension Code(s): I10 - ESSENTIAL (PRIMARY) HYPERTENSION Status: Acute (6) Hypothyroidism Code(s): E03.9 - HYPOTHYROIDISM, UNSPECIFIED Status: Acute (7) Insulin dependent diabetes mellitus Code(s): E11.9 - TYPE 2 DIABETES MELLITUS WITHOUT COMPLICATIONS; Z79.4 - CUSTODIAL (CURRENT) USE OF INSULIN Status: Acute - Plan Plan: (1) Acute renal failure on CKD - s/p dialysis on 08/04 and 08/06 - dialysis this morning - Fistula vs. graft in place in RUE - Dr. Galaviz following, appreciate recs - Case management working to have patient set up with outside dialysis, pt is nonfunded. (2) Cough with sputum production - repeat cxr shows no lobar pneumonia, only stable chf findings - WBC is normal this morning but trended up overnight to 10.2 - afebrile. - procalcitonin is 1.43, concerning for bacterial infection vs retention of metabolites from ckd. - He did have a temp of 100.5 last night, will consider treatment - UA, CXR, C diff Ag and Toxin and Fecal leukocytes pending (3) Fluid overload - CXR shows pulmonary vessel prominence along with elevated BNP and symptoms - s/p dialysis yesterday - Strict I/Os - Echo with EF 50-55% and elevated pulmonary artery pressure. (4) Elevated troponin - Suspect demand ischemia, troponins downtrended - No ST changes on EKG - ASA 81mgx4 and nitro paste given in ED - ASCVD risk 20.1%, started lipitor 40 mg daily (5) Hyperkalemia, resolved - s/p Lasix and kayexelate given in ED and dialysis - continue to monitor (6) Insulin dependent DM - hgA1c is 6.0 - ACHS accuchecks - Resume home insulin + moderate SSI (7) HTN - well controlled on current meds. - continue to monitor (8) Hypothyroidism - TSH WNL - Continue home levothyroxine
[2017-08-08] MEDS: Folic Acid 1 MG TAB PO SCH (11:43)
[2017-08-08] MEDS: Heparin 5,000 UNITS/ML VIAL SC SCH ×2 (11:43→15:40)
[2017-08-08] MEDS: Metoprolol Tartrate 25 MG TAB PO SCH (11:45)
[2017-08-08] MEDS: Multivit, Therapeutic 1 TAB PO SCH (11:46)
--- NOTE | 2017-08-08 12:01 | ADD-PRG ---
DATE OF SERVICE: 08/08/2017 Mr. Christensen is currently in dialysis undergoing this procedure without any issues. Nephrology has connor d he can be discharged following dialysis. Arrangements will be made for him to continue dialysis in [place].
[2017-08-08] MEDS: Insulin Glargine 10 UNITS in Pre-Filled Syringe 1 EACH SC SCH (12:05)
[2017-08-08 15:12] LABS: Bilirubin Moderate (Negative); Blood, Urine Negative (Negative); Clarity CLOUDY (Clear); Glucose, Urine (Dipstick) Negative (Negative); Leukocyte Trace (Negative); Nitrite Negative (Negative); Protein, Urine (Dipstick) 300 mg/dL (Neg-Trace); Specific Gravity, Urine 1.022 (1.002-1.036)
[2017-08-08 15:14] LABS: Bacteria/HPF None Seen HPF (None Seen)
[2017-08-08 15:15] LABS: Pathc Cast-AUWi Flag 3.63 (0-2.49)
[2017-08-08 15:28] LABS: Crystals/HPF 1+ AMORPH URATES HPF (Negative); RBC/HPF 0-3 HPF (0-3)
[2017-08-08 15:30] LABS: Hyaline Casts/LPF 7-10 HYALINE CAST LPF (0-3 Hyaline)
[2017-08-08 15:31] LABS: Other Casts/LPF 0-3 COARSE GRAN LPF (0-3 Hyaline); Renal Epithelial None Seen HPF (0-3); Transitional Epithelial NONE SEEN HPF (0-3)
[2017-08-08 15:50] VITALS: BP 134/65; TEMP 98.4
--- NOTE | 2017-08-08 19:49 | PRG ---
DATE OF SERVICE: 08/08/2017 SUBJECTIVE: Patient was seen and examined at bedside and overnight events noted. Patient denies any shortness of breath or chest pain or palpitation. No history of nausea or vomiting or diarrhea or fever or chills or cramps. OBJECTIVE: GENERAL: This is a well-built male in no apparent distress. VITAL SIGNS: Temperature 97.9, pulse 74, respiratory rate 18, blood pressure 107/75. HEENT: Atraumatic, normocephalic. Oral mucosa is moist. NECK: Supple. CARDIOVASCULAR: S1 and S2 heard. Rate and rhythm regular. RESPIRATORY: Clear to auscultation. GASTROINTESTINAL: Abdomen is soft. MUSCULOSKELETAL: No tenderness. No edema. DERMATOLOGIC: No skin rash. NEUROLOGIC: Alert and awake and oriented x3. No focal neurologic deficits. Moving all the extremit ies. PSYCHIATRIC: Mood and affect normal. LABORATORY DATA: Potassium is 4.4, BUN is 94, creatinine is 6.4. ASSESSMENT AND PLAN: 1. End-stage renal disease, on hemodialysis. Plan is to continue on dialysis as tolerated. Follow up with outpatient dialysis. 2. Edema. 3. Hypertension. 4. Anemia. The patient does not have funding to have outpatient dialysis. The patient was advised to follow up with [facility].
--- NOTE | 2017-08-08 19:59 | DIS-2 ---
DATE OF ADMISSION: 08/04/2017 DATE OF DISCHARGE: 08/08/2017 RESIDENT: Mitul Brito MD ADMITTING ATTENDING: Dr. Juan Garcia. DISCHARGE ATTENDING: Dr. Bradley Low. CONSULTATIONS: 1. Dr. Galaviz, Nephrology on 08/04/2017. 2. Case management on 08/04/2017. 3. Walking program on 08/04/2017. PROCEDURES: 1. Echocardiogram on 08/04/2017. Impression: Ejection fraction is visually estimated at 50%-55%. Left atrium is moderately to severely dilated, mild mitral regurgitation present, mild to moderate tr icuspid regurgitation present. 2. Chest x-ray on 08/07/2017. Impression: Radiographic findings of CHF are stable. No lobar pneum onia is evident. 3. Hemodialysis on 08/08/2017, 08/06/2017 and 08/04/2017. 4. Blood culture taken on 08/07/2017, no growth to date. PRIMARY DIAGNOSES: 1. Acute on chronic renal failure. 2. Fluid overload. SECONDARY DIAGNOSES: 1. Insulin-dependent diabetes mellitus. 2. Hypertension. 3. Hypothyroidism. 4. Chronic kidney disease. DISCHARGE MEDICATIONS: Resume all home medications including; 1. Bumex 1 mg p.o. daily. 2. Levothyroxine 100 mcg p.o. q.a.m. 3. Lactulose 15 grams p.o. daily. 4. Multivitamin 1 tab daily. 5. Iron 100 Plus 1 tablet daily. 6. Folic acid 0.8 mg tablet, 800 mcg daily. 7. NPH human insulin 20 units subcu q.a.m. NEW HOME MEDICATIONS: 1. Atorvastatin calcium 40 mg p.o. at bedtime. 2. Metoprolol tartrate 25 mg p.o. b.i.d. HISTORY OF PRESENT ILLNESS AND HOSPITAL COURSE: Mr. Red Christensen is a 62-year-old male with past medical history of chronic kidney disease, hypertension, hyperlipidemia who presented to the ER, was transferred from [facility] for chief complaint of shortness of breath over the last few days. It has been progressively worsening and became unbearable the morning of admission. He endorsed chest tigh tness and cough. The discomfort does not radiate. He denies any diaphoresis or vomiting. His cough is productive with clear sputum. He denies any hemoptysis, fever, chills, or sick contacts. He arr ived here from [place] 8 days ago. He had an AV fistula versus shunt placed 2 months ago in [place] anticipation of possible need for dialysis. He is fearful of dialysis as he had a brother who pas sed away immediately after starting dialysis recently. In the ED, he received 81 mg aspirin, nitro p aste, 100 mg IV Lasix, sodium bicarbonate, calcium chloride, Zofran, and Kayexalate. Initial labs we re significant for white blood cell count of 11.3, hemoglobin 12.5, hematocrit 31.6. BUN of 76, crea tinine 4.21, bicarbonate of 22. Sodium 138, potassium 4.2, chloride 103, glucose 150. BNP of 3649. EKG showed normal sinus rhythm and chest x-ray showed enlarged cardiac silhouette with prominent pul monary vessels. The patient was admitted for fluid overload and acute on chronic renal failure. Dr. Galaviz was consulted and dialysis was done first day of admission. Echo was done and results are as a moise. Patient's symptoms resolved soon after first dialysis corrected hyperkalemia and metabolic aci dosis as well as treated his symptoms. Patient is non-funded, so case management was consulted for d ischarge planning and dialysis planning for outpatient. It was determined that the patient's best pl an would be to go to [place] and see if there are any [facility] dialysis beds available. Dr. Galaviz said the patient was cleared for discharge on 08/08/2017 after he had had 3 separate rounds of hemodialys is with instructions to follow up with Nephrology in [place] to attempt to find a hemodialysis charit y bed. If any symptoms develop during that time to go to ER. The patient and family were notified o f instructions and they understood. Patient was started on metoprolol and atorvastatin during this a dmission and all other home meds were continued. DISPOSITION: Guarded. Patient has family in [place] and states that there should be [facility] beds av ailable. He should do well if he is able to get set up with [facility] bed in [place]. Otherwise, he i s aware of the symptoms and instructions to go to ER if he ever develops worsening symptoms. He has family support and and daughter were with him throughout the entirety of his admission and will be with him after discharge to aid him. DISCHARGE INSTRUCTIONS: 1. Location: Home. 2. Diet: Renal diet and heart healthy diet. 3. Activity: As tolerated. 4. Follow up with [facility] dialysis bed in [place] and Nephrology in [place] as well as establishing a PCP to manage chronic conditions.
== END 2017-08-08 19:33 | disposition home or self-care (01) | DRG 291 ==
LOC: ERS 07:11 → ERHOLD 09:27 → 2NO 10:26
PROVIDERS: ADMIT Student in an Organized Health Care Education/Training Program; ATTEND Student in an Organized Health Care Education/Training Program
DX: I13.2 Hypertensive heart and chronic kidney disease with heart failure and with stage 5 chronic kidney disease, or end stage renal disease (principal); N18.6 End stage renal disease; N17.9 Acute kidney failure, unspecified; E87.2 Acidosis; Z79.4 Long term (current) use of insulin; E03.9 Hypothyroidism, unspecified; R79.89 Other specified abnormal findings of blood chemistry; E87.70 Fluid overload, unspecified; E87.5 Hyperkalemia; R74.8 Abnormal levels of other serum enzymes; K74.60 Unspecified cirrhosis of liver; F10.21 Alcohol dependence, in remission; D63.1 Anemia in chronic kidney disease; I08.1 Rheumatic disorders of both mitral and tricuspid valves; E11.22 Type 2 diabetes mellitus with diabetic chronic kidney disease; I50.9 Heart failure, unspecified; Z99.2 Dependence on renal dialysis
CPT/HCPCS: 36415; 36416; 71046; 80048; 80061; 81003; 81015; 82140; 82607; 82728; 82746; 83036; 83540; 83550; 83630; 83690; 83735; 83880; 84100; 84145; 85025; 86580; 87040; 87324; 87340; 87449; 90471; 90732; 90935; 93005; 93306; 96374; 96375; G0009; G0257; J1644; J1815; J1940; Q0162